=== PATIENT | female | born 1955 | race Caucasian/White ===

== ENCOUNTER → 2017-02-11 | Outpatient (CLI) | payer OTHER ==
[~2017-02-11] MED LIST: ASPI81CH37 CHEW; ATOR80TA PO; GABA600T PO; GLIP10TA6 PO; GLUC10TA3 PO; HYDR-2768 PO; HYDR-4107 PO; HYDR25TA5 PO; LEVEMIR SC; LEVEMIR SQ; LORTA5 PO; LOSA100T PO; MOBI15TA PO; NOVOLOGP2 SQ; SPIR50TA PO; TIZA4CAP3 PO
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
== END ==
LOC: HRAD 15:19
DX: I82.409 Acute embolism and thrombosis of unspecified deep veins of unspecified lower extremity (principal)
CPT/HCPCS: 93971

== ENCOUNTER 2017-02-22 15:39 | Emergency (ER) | payer OTHER ==
[~2017-02-22 15:39] MED LIST changes: -ASPI81CH37 CHEW; -GABA600T PO; -GLIP10TA6 PO; -HYDR-4107 PO; -HYDR25TA5 PO; -LEVEMIR SQ; -LOSA100T PO; -MOBI15TA PO; -SPIR50TA PO; -TIZA4CAP3 PO
[2017-02-22 15:41] VITALS: BP 143/93; PULSE 118; RESP 20; TEMP 97.9; O2SAT 95
[2017-02-22 20:32] VITALS: BP 161/78; PULSE 95; RESP 17; O2SAT 96
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
[2017-02-22] MEDS ORDERED: NOVOLOGP2 SQ (20:45)
[2017-02-22] MEDS ORDERED: LOSA100T PO (20:45)
[2017-02-22] MEDS ORDERED: TIZA4CAP3 PO (20:45)
[2017-02-22] MEDS ORDERED: HYDR-4107 PO (20:45)
[2017-02-22] MEDS ORDERED: HYDR25TA5 PO (20:45)
[2017-02-22] MEDS ORDERED: LEVEMIR SQ (20:45)
[2017-02-22] MEDS ORDERED: GLIP10TA6 PO (20:45)
== END 2017-02-22 21:12 | disposition left against medical advice (07) ==
LOC: NEPC 15:39
DX: M79.605 Pain in left leg (principal)
CPT/HCPCS: 99281

== ENCOUNTER 2017-04-01 06:54 | Emergency (ER) | payer OTHER ==
[~2017-04-01] VITALS: Ht 167.6 cm; Wt 65.0 kg
[~2017-04-01 06:54] MED LIST changes: -ATOR80TA PO; +GLIP10TA6 PO; -GLUC10TA3 PO; -HYDR-2768 PO; +HYDR-4107 PO; +HYDR25TA5 PO; -LEVEMIR SC; +LEVEMIR SQ; -LORTA5 PO; +LOSA100T PO; +TIZA4CAP3 PO
[2017-04-01 06:56] VITALS: BP 194/91; PULSE 89; RESP 16; TEMP 97.9; O2SAT 100
[2017-04-01] MEDS ORDERED: SPIR50TA PO (07:14)
[2017-04-01] MEDS ORDERED: TIZA4CAP3 PO (07:14)
[2017-04-01] MEDS ORDERED: GABA600T PO (07:14)
[2017-04-01] MEDS ORDERED: ASPI81CH37 CHEW (07:14)
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
[2017-04-01 07:41] VITALS: BP 172/86; PULSE 91; RESP 16; O2SAT 99
--- NOTE | 2017-04-01 09:06 | RADRPT ---
EXAM DATE/TIME: 04/01/2017 07:40 [facility] COMPARISON: No previous studies available for comparison. INDICATIONS : Pain with swelling and bruising 5th toe into base of 5th metatarsal. MEDICAL HISTORY : Diabetes mellitus type II. SURGICAL HISTORY : None. ENCOUNTER: Initial ACUITY: 3 days PAIN SCORE: 9/10 LOCATION: Left foot. FINDINGS: There is a minimally displaced fracture involving the proximal aspect of the fifth toe proximal phala nx in the medial metaphyseal region. The toe is otherwise intact. The fifth metatarsal is intact. The foot is otherwise unremarkable. CONCLUSION: Fifth toe fracture Kyle Carter MD on April 01, 2017 at 9:03 Board Certified Radiologist. This report was verified electronically.
[2017-04-01] MEDS ORDERED: MOBI15TA PO (09:25)
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
== END 2017-04-01 09:39 | disposition home or self-care (01) ==
LOC: NEPC 06:54
DX: S92.512A Displaced fracture of proximal phalanx of left lesser toe(s), initial encounter for closed fracture (principal); X58.XXXA Exposure to other specified factors, initial encounter
CPT/HCPCS: 73630; 93971; 99284; L3260

== ENCOUNTER → 2017-12-30 | Outpatient (CLI) | payer OTHER ==
[~2017-12-30] MED LIST changes: +ASPI81CH6 CHEW; +GABA600T PO; -GLIP10TA6 PO; -HYDR-4107 PO; +MOBI15TA PO; +SPIR50TA PO
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
== END ==
LOC: HRAD 09:35
DX: S20.20XA Contusion of thorax, unspecified, initial encounter (principal)
CPT/HCPCS: 71100

== ENCOUNTER 2018-04-26 15:59 | Emergency (ER) | payer OTHER ==
[2018-04-26] VITALS (8 sets, daily range): BP systolic 155–221; BP diastolic 68–108; PULSE 88–121; RESP 16–18; TEMP 97.9; O2SAT 97–100
[~2018-04-26] VITALS: Ht 165.1 cm; Wt 58.0 kg
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
[2018-04-26] MEDS ORDERED: MORPHINE SULFATE 4 MG/ML INJ IV PUSH ONE ×2 (16:30→18:45)
[2018-04-26] MEDS ORDERED: SODIUM CHLORID 0.9% 500 ML INJ 500 ML IV ONE (16:30)
[2018-04-26] MEDS ORDERED: SODIUM CHLORIDE 0.9% FLUSH 10 ML FLUSH IVF PRN (16:30)
[2018-04-26] MEDS ORDERED: ONDANSETRON ODT 4 MG TAB PO ONE (16:30)
[2018-04-26] MEDS ORDERED: LISI-519 PO (16:33)
[2018-04-26] MEDS ORDERED: GLIP10TA6 PO (16:33)
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
[2018-04-26 16:57] LABS: AUTOMATED NEUTROPHIL # 2.9 TH/MM3 (1.8-7.7); BASOPHIL % 0.6 % (0.0-2.0); EOSINOPHIL # 0.1 TH/MM3 (0-0.4); EOSINOPHIL % 2.1 % (0.0-4.0); HEMATOCRIT 40.5 % (35.0-46.0); HEMOGLOBIN 13.5 GM/DL (11.6-15.3); LYMPH % 47.3 % (9.0-44.0); LYMPHOCYTE # 3.5 TH/MM3 (1.0-4.8); MEAN CORPUSCULAR HEMOGLOBIN 29.2 PG (27.0-34.0); MEAN CORPUSCULAR HGB CONC 33.3 % (32.0-36.0); MEAN PLATELET VOLUME 7.6 FL (7.0-11.0); MONO % 8.5 % (0.0-8.0); MONOCYTE # 0.6 TH/MM3 (0-0.9); NEUT % 41.5 % (16.0-70.0); PLATELET COUNT 283 TH/MM3 (150-450); RED BLOOD COUNT 4.61 MIL/MM3 (4.00-5.30); RED CELL DISTRIBUTION WIDTH 12.6 % (11.6-17.2); WHITE BLOOD COUNT 7.1 TH/MM3 (4.0-11.0)
[2018-04-26 17:08] LABS: CHLORIDE 103 MEQ/L (98-107); SODIUM (NA) 138 MEQ/L (136-145)
[2018-04-26 17:12] LABS: CALCIUM 8.8 MG/DL (8.5-10.1)
[2018-04-26 17:13] LABS: ALBUMIN 3.4 GM/DL (3.4-5.0); BICARBONATE 26.2 MEQ/L (21.0-32.0); BLOOD UREA NITROGEN 16 MG/DL (7-18); GLUCOSE,RANDOM 363 MG/DL (74-106); MAGNESIUM 1.7 MG/DL (1.5-2.5)
[2018-04-26 17:14] LABS: PROTHROMBIN TIME - PATIENT 9.7 SEC (9.8-11.6)
[2018-04-26 17:16] LABS: ALT (GPT) 17 U/L (10-53); AST (GOT) 12 U/L (15-37); GLOMERULAR FILTRATION RATE 84 ML/MIN (>89)
[2018-04-26 17:17] LABS: TOTAL BILIRUBIN ADULT 0.4 MG/DL (0.2-1.0)
[2018-04-26 17:18] LABS: TOTAL PROTEIN 6.8 GM/DL (6.4-8.2)
[2018-04-26 17:19] LABS: ALKALINE PHOSPHATASE 105 U/L (45-117)
[2018-04-26 17:21] LABS: TROPONIN I LESS THAN 0.02 NG/ML (0.02-0.05)
[2018-04-26] MEDS ORDERED: IOHEXOL 350 MG/ML 10 ML VIAL (for RAD DIAG) IVCONTRAST ONE (17:50)
--- NOTE | 2018-04-26 18:05 | RADRPT ---
EXAM DATE: 04/26/2018 5:54 PM EDT AGE/SEX: 62 years / Female INDICATIONS: Right sided chest pain for two weeks. CLINICAL DATA: This is the patient's initial encounter. Patient reports that signs and symptoms have been present for 1 day and indicates a pain score of 6/10. MEDICAL/SURGICAL HISTORY: Carcinoma, breast. Diabetes. Hypertension. Hysterectomy. RADIATION DOSE: 8.48 CTDI (mGy) COMPARISON: No prior [place] exams available for comparison. TECHNIQUE: Volumetric scanning was performed using a multi-row detector CT scanner during bolus infu roberto of 70 ml Omnipaque 350 (iohexol) nonionic water-soluble contrast as a single exam dose. The kim a was post processed with a variety of visualization algorithms including full volume maximum intensi ty projection and sliding thin slab reformation. Using automated exposure control and adjustment of the mA and/or kV according to patient size, radiation dose was kept as low as reasonably achievable t o obtain optimal diagnostic quality images. FINDINGS: No filling defects to suggest pulmonary embolic disease. There is no pleural or pericardial effusion. No lung consolidation. No hilar, mediastinal or axillary adenopathy. No acute findings in the upper abdomen. CONCLUSION: 1. Negative for pulmonary embolus. Electronically signed by: Obi Willis MD 04/26/2018 6:04 PM EDT
[2018-04-26] MEDS ORDERED: NORC5TAB PO (18:36)
[2018-04-26] MEDS ORDERED: NAPR500 PO (18:36)
[2018-04-26] MEDS ORDERED: KETOROLAC TROMETHAMINE 30 MG/ML (IVP) VIAL IV PUSH ONE (18:45)
--- NOTE | 2018-04-27 14:09 | EKG ---
Date Performed: 04/26/2018 Time Performed: 16:33:41 PTAGE: 62 years EKG: Sinus rhythm PATTERN CONSISTENT WITH PULMONARY DISEASE INCOMPLETE RIGHT BUNDLE BRANCH BLOCK LEFT ANTERIOR FASCICU LAR BLOCK ABNORMAL ECG PREVIOUS TRACING : 11/25/2011 12.40 Since the previous tracing, no significant change noted DOCTOR: Jose Cox Interpretating Date/Time 04/27/2018 14:03:25
== END 2018-04-26 19:21 | disposition home or self-care (01) ==
LOC: PHED 15:59
DX: R07.89 Other chest pain (principal); R94.31 Abnormal electrocardiogram [ECG] [EKG]; E78.00 Pure hypercholesterolemia, unspecified; E11.9 Type 2 diabetes mellitus without complications; I10 Essential (primary) hypertension; Z85.3 Personal history of malignant neoplasm of breast
CPT/HCPCS: 71046; 71275; 80053; 82550; 83690; 83735; 84484; 85025; 85610; 85730; 93005; 96361; 96374; 96375; 96376; 99285; J1885; J2270; J7040; Q9967